=== PATIENT | female | born 1995 | race African-American/Black ===

== ENCOUNTER 2016-11-06 19:09 | Emergency (ER) | payer MEDICAID ==
[~2016-11-06] VITALS: Ht 162.6 cm; Wt 59.1 kg
[2016-11-06] MEDS ORDERED: PHENAZOPYRIDINE HCL 100 MG TABLET PO ONE (20:45)
[2016-11-06] MEDS: CefTRIAXone SODIUM 1 GM/VIAL IM ONE ×2 (20:48→21:02)
[2016-11-06] MEDS: LIDOCAINE HCL/PF 1% 2 ML VIAL IM ONE ×2 (20:49→21:02)
[2016-11-06 20:58] VITALS: BP 118/72
[2016-11-06 21:33] LABS: APPEARANCE,URINE CLOUDY (CLEAR); GLUCOSE, URINE (UA) NEGATIVE (NEGATIVE); KETONES,URINE NEGATIVE (NEGATIVE); LEUKOCYTE ESTERASE ,URINE MODERATE (NEGATIVE); OCCULT BLOOD,URINE LARGE (NEGATIVE); PROTEIN,URINE POS 1+ (NEGATIVE)
[2016-11-06 21:55] LABS: RBC,URINE 51-100 /HPF (0-2); SQUAMOUS EPITHELIAL CELL,UR Many /LPF (None Seen); WBC,URINE 51-100 /HPF (0-5)
== END 2016-11-06 21:00 | disposition home or self-care (01) ==
LOC: EMS 19:13
DX: N39.0 Urinary tract infection, site not specified (principal); F17.210 Nicotine dependence, cigarettes, uncomplicated
CPT/HCPCS: 81001; 84703; 87086; 99284; J0696; J3490